=== PATIENT | male | born 1990 | race Caucasian/White ===

== ENCOUNTER 2017-04-29 03:17 | Emergency (ER) | payer OTHER ==
[~2017-04-29] VITALS: Ht 188 cm; Wt 120.2 kg
[2017-04-29 03:17] VITALS: BP_SYST 113
[2017-04-29 03:35] VITALS: BP_SYST 117
== END 2017-04-29 03:35 ==
LOC: SED 03:17
DX: Z02.89 Encounter for other administrative examinations (principal); J45.909 Unspecified asthma, uncomplicated; F17.200 Nicotine dependence, unspecified, uncomplicated
CPT/HCPCS: 99283